=== PATIENT | male | born 1950 | race Caucasian/White ===

== ENCOUNTER 2016-11-02 11:37 | Inpatient (IN) | payer MEDICARE, OTHER ==
[~2016-11-02] VITALS: Ht 170.2 cm; Wt 72.1 kg
[~2016-11-02 11:37] MED LIST: AMLO5TAB2 PO; HYDR-4003 PO; TAMS0.4C98 PO
[2016-11-02 11:51] VITALS: BP 144/82; PULSE 112; O2SAT 100
--- NOTE | 2016-11-02 12:17 | ED.REPORT ---
HPI-Back Pain 40 and Over Date of Service Nov 02, 2016 ED Provider: Carl Haines DO The patient is a 66 year old male with history of prostate cancer, urinary retention with hydronephrosis and acute renal insufficiency, and borderline hypertension, who presents to the emergency department complaining of lower back pain that began 4-5 days ago. His pain has gradually worsened since onset. His pain is not relieved in any position. He denies any known injuries or trauma. He has not had similar symptoms in the past. He denies numbness, weakness, trouble walking, dysuria, flank pain or bowel incontinence. He states he has experienced bladder incontinence for some time due to a previous catheter injury. He was seen by his regular doctor a few days ago who prescribed him Ambien to help with his sleep. He has been unable to get this prescription filled. Over the last several weeks he has also noticed generalized weakness, decreased appetite, and weight loss. The patient does not want to do the therapies that have been recommended to him by Dr. Lopez. He states he would like a more natural route. He is upset and resistant to conventional treatment for prostate cancer. Nursing Notes Stated Complaint: LOWER BACK PAIN Chief Complaint: Back Pain or Injury Nursing Notes Reviewed: Yes Allergies: Coded Allergies: No Known Allergies (Unverified , 05/29/16) Pt reports he does not have an allergy to seafood Scheduled Amlodipine (Amlodipine) 5 Mg Tablet 2.5 MG PO DAILY Tamsulosin (Flomax) 0.4 Mg Capsule 0.4 MG PO BID Scheduled PRN Hydrocodone-Acetaminophen 5-325 mg (Hydrocodone-Acetaminophen 5-325 mg) 1 Each Tablet 1-2 TABLET PO Q4H PRN PRN For Moderate Pain General Time Seen by MD: 12:12 Chief Complaint Lumbar pain Hx Obtained From: Patient Arrived By: Walk-in Sudden in Onset?: Yes Onset Occurred: 4 days ago Symptom Duration: Since onset Location: : Perispinal lumbar Quality: Painful Radiation: : Does not radiate Severity: Current: Moderate Severity: Maximum: Severe Recent Healthcare: No recent hospitalization, Recent doctor visit Similar Sx Previous: No Past Medical History Past Medical History Prostate CA (diagnoses sounds suspected, but not confirmed) Urinary retention, with hydronephrosis and acute renal insufficiency Borderline Hypertension Past Surgical History Inguinal hernia as a child Tonsillectomy Family History Noncontributory Smoking History Current Every Day Smoker Social History Alcohol Use: "Social" Other Social History: Local resident Ambulatory Status Independent Review of Systems Review of Systems Note: +decreased appetite Constitutional: Reports: Recent wt loss, Weakness - generalized Male: Reports Incontinence (not new), Denies Dysuria, Denies Flank pain Musculoskeletal: Reports: Back pain, Denies: Extremity pain Neurologic: Reports: Bladder dysfunction (not new), Denies: Bowel dysfunction, Focal weakness, Numbness, Problem walking Complete sys rev & neg: except as marked. Physical Exam Initial Vital Signs Vital Signs (First) Date Time Temp Pulse Resp B/P Pulse Ox O2 Delivery O2 Flow Rate FiO2 11/02/16 11:51 36.6 112 144/82 100 Room Air Initial VS: Reviewed Head / Eyes: Atraumatic, Normocephalic, PERRL ENT: Mucous membranes moist, Conjunctiva normal, No scleral icterus Neck: Supple, Non-tender, Full range of motion Lymphatic: No lymphadenopathy Extremities: Vascular intact, Neuro intact, No swelling, No tenderness Skin: Warm, Dry, No cyanosis General/Constitutional: Awake, Alert, No acute distress, Cooperative Respiratory / Chest: Atraumatic, Breath sounds NL, Breath sounds = bilat, No respiratory distress, No rales, No rhonchi, No wheezing Cardiovascular: Heart rate NL, Regular rhythm, Heart sounds NL, No gallop, No murmurs, No rubs, Peripheral circulation NL Abdomen: Atraumatic, Non-tender, No guarding, No rebound, BS normoactive, No distention, No palpable mass, No pulsatile mass Suprapubic fullness, abdomen is otherwise soft. Back: Full range of motion, No muscle spasm, Straight leg raise neg, No CVA tenderness Sacral tenderness. Intact motor and sensory. Neurologic: Oriented X3, Speech NL, No motor deficits, No sensory deficits, CN II - XII intact, Cerebellar NL, Memory NL, Gait NL Abnormal Mood/Affect: Positive: Flat affect Interpretation & Diagnostics Lab Results Interpretation Result Diagram: 11/02/16 1250 11/02/16 1250 Test 11/02/16 12:50 White Blood Count 18.2th/mm3 (3.8-10.1) Red Blood Count 3.80mil/mm3 (4.40-5.80) Hemoglobin 11.5g/dL (13.8-17.2) Hematocrit 34.5% (41.0-50.0) Mean Corpuscular Volume 90.8fL (81-100) Mean Corpuscular Hemoglobin 30.3pg (27.0-35.0) Mean Corpuscular Hemoglobin Concent 33.3% (32.0-37.0) Red Cell Distribution Width 13.3% (12.3-15.4) Platelet Count 320bil/L (150-400) Neutrophils (%) (Auto) 90.2% (40-74) Lymphocytes (%) (Auto) 3.6% (14-46) Monocytes (%) (Auto) 5.1% (4-12) Eosinophils (%) (Auto) 0.7% (0-5) Basophils (%) (Auto) 0.1% (0-3) Sodium Level 134mEq/L (134-144) Potassium Level 5.1mEq/L (3.5-5.2) Chloride Level 99mEq/L (97-108) Carbon Dioxide Level 14mmol/L (18-29) Blood Urea Nitrogen 85mg/dL (8-27) Creatinine 3.22mg/dL (0.76-1.27) Estimat Glomerular Filtration Rate 20mL/min (>59) Glucose Level 146mg/dL (60-99) Lactic Acid Level 0.7mmol/L (0.4-2.0) Calcium Level 9.7mg/dL (8.5-10.1) Magnesium Level 2.5mg/dL (1.6-2.6) Total Bilirubin 0.3mg/dL (0.0-1.2) Aspartate Amino Transf (AST/SGOT) 14U/L (0-50) Alanine Aminotransferase (ALT/SGPT) 12U/L (0-44) Alkaline Phosphatase 78U/L (25-160) Total Protein 7.2g/dL (6.4-8.4) Albumin 3.8g/dL (3.4-5.0) Lipase 38U/L (13-60) CT Abd / Pelvis Interpretation IMPRESSION: 1. Findings most consistent with bladder outlet obstruction, with dilated urinary bladder, moderate to severe bilateral hydronephrosis, and ureteral dilatation. 2. New retroperitoneal and iliac chain lymph node enlargement, consistent with metastatic disease given history of prostate carcinoma. 3. New left L5 sclerotic metastasis. Dictated by: Stormy White M.D. on 11/02/2016 at 14:37 Study type: Abdominal CT IV contrast Interpretation / Wet Read by: Interpret - Radiologist Re-Eval/Medical Decision Med Decision/Clinical Course Suspect bladder outlet obstruction due to prostate issues with possible superimposed urinary tract infection causing acute kidney injury. Incidentally patient also has a new metastatic lesion in L5 area which corresponds with his area back pain. Given the severity of his kidney function, will plan to admit. Source of Hx: Old records Re-Evaluation/Progress #1: Time of Eval: 12:45 Re-Evaluation/Progress Note: The patient is refusing a catheter at this time. Re-Evaluation/Progress #2: Time of Eval: 12:55 Re-Evaluation/Progress Note: Discussed the importance of having the catheter placed with the patient. He agrees with the plan. Re-Evaluation/Progress #3: Time of Eval: 14:50 Re-Evaluation/Progress Note: Discussed lab results and plan for admission. The patient is agreeable with plan. Consultation : Referral / Consult Name: Christian Beckman MD Consulted With: Hospitalist Requested Call at: 13:58 Call Returned at: 14:49 Resistor Coater: Will see patient, Agrees with eval, Agrees with plan, Accepts admit Counseled Regarding: Diagnosis, Lab results, Need for admission Discharge & Departure Impression: Primary Impression: Acute kidney injury Additional Impression: Low back pain Chronicity: acute Back pain laterality: midline Sciatica presence: without sciatica Qualified Code: M54.5 - Low back pain Disposition: ADMITTED TO HOSPITAL Discharge Condition All VS Reviewed: Yes Condition: Stable Referrals: Owen Lopez MD (PCP) [facility] Puneet Attestation Portions of this note were transcribed by Kitty Schreiber. I, Dr. Haines personally performed the history, physical exam and medical decision-making; I reviewed and confirmed the accuracy of the information in the transcribed note. Signed by: Puneet Sarah, 11/02/2016 and 1500. copies to: Owen Lopez MD; [facility] Carl Haines DO Nov 02, 2016 12:17 Kitty Schreiber Nov 02, 2016 12:22
[2016-11-02] MEDS ORDERED: 0.9% Sodium Chloride 1,000 ML IV ONE (12:30)
[2016-11-02] MEDS ORDERED: Ondansetron 2 mg/mL 2 mL Inj IVPUSH ONE (12:30)
[2016-11-02] MEDS ORDERED: Lidocaine 2% 5 mL Topical Jelly ONE (13:19)
[2016-11-02 13:27] LABS: BASOPHILS % (AUTO) 0.1 % (0-3); EOSINOPHILS % (AUTO) 0.7 % (0-5); MONOCYTES % (AUTO) 5.1 % (4-12); Mean Corpuscular Hemoglobin 30.3 pg (27.0-35.0); Mean Corpuscular Volume 90.8 fL (81-100); NEUTROPHILS % (AUTO) 90.2 % (40-74); Platelet Count 320 bil/L (150-400)
[2016-11-02 13:33] LABS: Magnesium 2.5 mg/dL (1.6-2.6)
--- NOTE | 2016-11-02 14:46 | DRSVH ---
PROCEDURE: CT ABDOMEN AND PELVIS WITHOUT CONTRAST ([id number]) INDICATIONS: BACK PAIN, HISTORY OF PROSTATE CA TECHNIQUE: After the administration of oral contrast, 5 mm thick sections acquired from the diaphragms to the sy mphysis. 5 mm coronal and sagittal reformats were performed. For radiation dose reduction, the foll owing was used: automated exposure control, adjustment of mA and/or kV according to patient size. COMPARISON: [facility], CT, CT ABD PELVIS W CON, 05/28/2016, 0:23. FINDINGS: Image quality: Excellent. ABDOMEN: Lung bases: Lung bases are clear. Heart size is normal. Solid organs: Liver and spleen are normal in size. Gallbladder is within normal limits. Pancreas i s normal in size. No adrenal nodules. Moderate perinephric fat stranding bilaterally. Moderate to se desmond bilateral hydronephrosis. Moderate bilateral ureteral dilatation. Peritoneum and bowel: Bowel loops demonstrate normal wall thickness and caliber. No free fluid or a ir. Nodes and vessels: New mildly prominent retroperitoneal lymph nodes are present, largest of which is in the aortocaval location measuring 13 mm short axis. Smaller scattered bilateral retroperitoneal an d iliac chain lymph nodes are present, which are increased.. Aorta and inferior vena cava are normal in size. Miscellaneous: No ventral hernias. PELVIS: Genitourinary: Moderate urinary bladder distention. Miscellaneous: No inguinal hernias or adenopathy. Bones: New 20 mm diameter sclerotic focus within the left posterior L5 vertebral body. No vertebral b oj compression fractures. IMPRESSION: 1. Findings most consistent with bladder outlet obstruction, with dilated urinary bladder, moderate t o severe bilateral hydronephrosis, and ureteral dilatation. 2. New retroperitoneal and iliac chain lymph node enlargement, consistent with metastatic disease giv en history of prostate carcinoma. 3. New left L5 sclerotic metastasis. Dictated by: Stormy White M.D. on 11/02/2016 at 14:37 Approved by: Stormy White M.D. on 11/02/2016 at 14:40
[2016-11-02] MEDS ORDERED: cefTRIAXone Inj 2,000 MG in Dextrose 5% Minibag Plus 50 ML IV ONE (14:55)
[2016-11-02] MEDS ORDERED: Alum-Mag Hydrox-Simeth 30 mL Suspension PO PRN (15:00)
[2016-11-02] MEDS: 0.9% Sodium Chloride 1,000 ML IV SCH ×4 (15:34→23:45)
[2016-11-02 15:46] LABS: APPEARANCE,URINE HAZY (CLEAR,HAZY); COLOR,URINE YELLOW (YELLOW); PH,URINE 5.5 (5.0-8.0)
[2016-11-02 15:47] LABS: OCCULT BLOOD,URINE NEGATIVE (NEGATIVE); UROBILINOGEN,URINE NORMAL (NORMAL)
[2016-11-02] MEDS ORDERED: Polyethylene Glycol (PEG) 17 Gm Powder PO PRN (16:40)
[2016-11-02] MEDS ORDERED: Dexamethasone 4 mg/mL Inj IV ONE (16:40)
[2016-11-02] MEDS ORDERED: fentaNYL-PF 50 mCg/mL 2 mL Inj IV PRN (16:40)
[2016-11-02] MEDS ORDERED: _HYDROcodone/APAP 5-325 mg Tablet PO PRN (16:50)
[2016-11-02 16:59] VITALS: BP 168/74; PULSE 101; RESP 16; O2SAT 100
--- NOTE | 2016-11-02 17:09 | PCM.HPMED ---
Subjective Date of Service Nov 02, 2016 Primary Provider: Admitting Physician: Christian Beckman MD Primary Care Physician: Noppedro luis Attending Physician: Christian Beckman MD Admit Status: From the Emergency Department Chief Complaint: Pain in my butt. History of Present Illness: 6 days of progressive low back pain/weakness concurrent with increasing urinary obstruction symptoms. He is known to have prostate cancer and on CT scan imaging is found to have a L5 metastatic lesion that is apparently new. He has been resistant to treatment of prostate cancer for several years, apparently going back to 2010, and has seen urology both locally with Dr. Lopez and with the [facility] clinic in [place]. On his last admission in May he had similar bilateral hydronephrosis and obstruction symptoms. He was apparently self catheterizing until the end of September when he experienced gross hematuria after he says he accidentally used a larger than normal catheter. He has not been catheterizing himself since and now appears to have 875 mL postvoid. This whole process has left him sleepless, weakend, in increasing pain. His last contact with [facility] last week was apparently to ask for a sleeping pill. His creatinine has risen from a baseline of 1.2 up to 3.2 with a BUN of 85. His white blood count again is high at 18,000. On his last admission and this was felt to be caused by the demargination but again pyelonephritis/UTI is once again suspected. There has been no fevers or abdominal pain. Review of Systems: Positive for low back/buttock area pain, weakness, sleeplessness, overflow incontinence. Negative for fevers, chills, sweats, abdominal pain, chest pain, coughing, rashes, seizures, joint pain, bleeding, headaches, new allergies. Allergies Coded Allergies: No Known Allergies (Unverified , 05/29/16) Pt reports he does not have an allergy to seafood Home Medications When necessary ibuprofen/naproxen PMH Prostate cancer Urinary obstruction Hydronephrosis bilateral Surgical History Internal hernia repair at age 1 Tonsillectomy Family History Reviewed and no pertinent history obtained to this admission Social History Hx Alcohol Use: No (he says he does not drink alcohol) Hx Substance Use: No (he says he does not smoke marijuana) Hx Tobacco Use: No Smoking Status: Former Smoker (he says he stopped smoking last month.) Living Arrangement: Alone Additional Information Social History Primary care physician is Dr. Coyle at the [facility] in [place] Urologist is Dr. Lopez He wishes to be full code Exam Vital Signs Vital Sign - Last Date Time Temp Pulse Resp B/P Pulse Ox O2 Delivery O2 Flow Rate FiO2 11/02/16 15:35 36.5 11/02/16 11:51 112 144/82 100 Room Air Exam Alert and oriented 3, with mild pain distress. Pupils are equally round and reactive to light and accommodation, extraocular muscles are intact, sclerae are pink and nonicteric. Throat looks normal No carotid bruits are heard JVD is less than 6 cm No lymph nodes are felt head, neck, supraclavicular area. Heart is regular rate and rhythm without murmur Lungs are clear to auscultation bilaterally Abdomen is soft, bowel sounds are heard, nontender, no organomegaly or masses felt. There is no ankle edema There is no spinal tenderness or tenderness elsewhere in the back. Skin has no jaundice or rash Neuro exam without tremor, but with weakness diffusely and without cranial nerve abnormality detected. Lab and Diagnostics Result Diagram: 11/02/16 1250 11/02/16 1250 X-Rays, CTs and MRIs CT ABDOMEN AND PELVIS WITHOUT CONTRAST ([id number]) INDICATIONS: BACK PAIN, HISTORY OF PROSTATE CA TECHNIQUE: After the administration of oral contrast, 5 mm thick sections acquired from the diaphragms to the symphysis. 5 mm coronal and sagittal reformats were performed. For radiation dose reduction, the following was used: automated exposure control, adjustment of mA and/or kV according to patient size. COMPARISON: [facility], CT, CT ABD PELVIS W CON, 05/28/2016, 0:23. FINDINGS: Image quality: Excellent. ABDOMEN: Lung bases: Lung bases are clear. Heart size is normal. Solid organs: Liver and spleen are normal in size. Gallbladder is within normal limits. Pancreas is normal in size. No adrenal nodules. Moderate perinephric fat stranding bilaterally. Moderate to severe bilateral hydronephrosis. Moderate bilateral ureteral dilatation. Peritoneum and bowel: Bowel loops demonstrate normal wall thickness and caliber. No free fluid or air. Nodes and vessels: New mildly prominent retroperitoneal lymph nodes are present , largest of which is in the aortocaval location measuring 13 mm short axis. Smaller scattered bilateral retroperitoneal and iliac chain lymph nodes are present, which are increased.. Aorta and inferior vena cava are normal in size. Miscellaneous: No ventral hernias. PELVIS: Genitourinary: Moderate urinary bladder distention. Miscellaneous: No inguinal hernias or adenopathy. Bones: New 20 mm diameter sclerotic focus within the left posterior L5 vertebral body. No vertebral body compression fractures. IMPRESSION: 1. Findings most consistent with bladder outlet obstruction, with dilated urinary bladder, moderate to severe bilateral hydronephrosis, and ureteral dilatation. 2. New retroperitoneal and iliac chain lymph node enlargement, consistent with metastatic disease given history of prostate carcinoma. 3. New left L5 sclerotic metastasis. Dictated by: Stormy White M.D Assessment & Plan 1 - Bony metastasis of prostate cancer -Begin dexamethasone IV -Recommend palliative care consultation for goals of care and symptom control 2 - Bladder Outlet Obstruction/Hydronephrosis -Consider urology consultation -Continue Palencia catheter 3 - Out of Control Pain/Insomnia -Begin on dexamethasone/ibuprofen -Use IV fentanyl when necessary -Use hydrocodone orally when necessary 4- Probable Depression -Recommend treatment in further discussions with the patient 5 - Acute Renal Failure -Anticipate improvement with relief of outlet obstruction using catheter -Repeat BMP tomorrow 6 - Leukocytosis/Possible UTI - Begin Rocephin IV - UC pending. - Follow WBC Austen Beckman MD Pain Evaluation: Pain not Controlled VTE Prophylaxis: Sub-Q Enoxaparin VTE Mechanical Devices: Anti-Embolic stockings Resuscitation Status: CPR: Attempt Resuscitation Christian Beckman MD Nov 02, 2016 16:54
[2016-11-02] MEDS: HYDROcodone-APAP 5-325 mg Tablet PO PRN ×2 (17:14→18:56)
--- NOTE | 2016-11-02 19:13 | NUR ---
Admit Pt arrive on [facility] at 1720, able to roll from gurney to bed with no assistance. Pain 8/10 on admit administered Vicodin. Palencia draining clear light yellow urine. admit and med rec done.
[2016-11-02 20:45] VITALS: BP 148/81; PULSE 94; RESP 18; O2SAT 97
[2016-11-03 01:40] VITALS: BP 136/71; PULSE 83; RESP 20; O2SAT 99
[2016-11-03] MEDS: 0.9% Sodium Chloride 1,000 ML IV SCH ×5 (02:21→22:40)
[2016-11-03 05:11] LABS: BASOPHILS % (AUTO) 0.1 % (0-3); EOSINOPHILS % (AUTO) 0 % (0-5); MONOCYTES % (AUTO) 2.7 % (4-12); Mean Corpuscular Hemoglobin 30.5 pg (27.0-35.0); Mean Corpuscular Volume 91.4 fL (81-100); NEUTROPHILS % (AUTO) 94.2 % (40-74); Platelet Count 336 bil/L (150-400)
[2016-11-03 06:19] VITALS: BP 139/71; PULSE 81; RESP 16; O2SAT 99
--- NOTE | 2016-11-03 07:21 | NUR ---
Adequate UOP. FC = 1950 cc. Back pain subsided with meds. No overt complications noted.
[2016-11-03] MEDS ORDERED: cefTRIAXone Inj 1,000 MG in Dextrose 5% Minibag Plus 50 ML IV SCH (08:30)
[2016-11-03] MEDS: HYDROcodone-APAP 5-325 mg Tablet PO PRN ×4 (09:10→22:37)
[2016-11-03] MEDS: Dexamethasone 4 mg/mL Inj IV SCH ×2 (10:43→20:53)
--- NOTE | 2016-11-03 11:34 | PCM.PNMED ---
Subjective Date of Service Nov 03, 2016 Subjective Feeling better due to Decadron and Ibuprofen. The pain is in a big holy cross around the rectum. He is worried that he could have pancreatic cancer, which he has heard would affect his prognosis. I reassured him that the Pancreas was normal on CT. He feels that the AMA is suppressing all the new cancer treatment technology that doesn't involve chemo and radiation. He wants to cure his prostate cancer with healthy food and probiotics, quickly forgetting how ineffective that has been up till now. He refuses to speak to a urologist, continuing to blame that office for giving him a larger caliber in and out catheter he was given to use, that he blames for an episode of gross hematuria weeks ago. He doesn't care that the hormonal and other well tolerated prostate cancer treatments that could be given would be very effective for his bone met pain. The UA is normal so he is relieved to hear that the antibiotics will be stopped because he doesn't like them either. The impression I get today is that as soon as his pain/distress is relieved his underlying distrustful/delusional personality traits come to the front. He initially is upset by the idea of palliative care talking to him tomorrow despite me stressing that following his goals and improving symptom control is the only thing that is necessary for now. Exam Vital Signs Vital Sign - Last Date Time Temp Pulse Resp B/P Pulse Ox O2 Delivery O2 Flow Rate FiO2 11/03/16 06:19 37.1 81 16 139/71 99 Room Air Intake and Output 11/02/16 11/02/16 11/03/16 Cumulative From/Thru 15:00 23:00 07:00 11/02/16 11:51 - 11/03/16 06:19 Intake Total 1400 ml 2147 ml 3547 ml Output Total 850 ml 1950 ml 2800 ml Balance 550 ml 197 ml 747 ml Intake Oral 400 ml 1000 ml 1400 ml IV Total 1000 ml 1147 ml 2147 ml Output Urine Total 850 ml 1950 ml 2800 ml Bladder Scan Volume Amount 875ML # Bowel Movements 0 0 Exam Alert and oriented 3, with no pain behavior or distress.. Heart is regular rate and rhythm without murmur Lungs are clear to auscultation bilaterally There is no ankle edema Skin has no jaundice or rash Neuro exam without tremor, but with weakness diffusely and without cranial nerve abnormality detected. IVs and Medications Medications Reviewed: Medications were reviewed in detail Lab and Diagnostics Result Diagram: 11/03/1645611/03/16456 X-Rays, CTs and MRIs CT ABDOMEN AND PELVIS WITHOUT CONTRAST ([id number]) INDICATIONS: BACK PAIN, HISTORY OF PROSTATE CA TECHNIQUE: After the administration of oral contrast, 5 mm thick sections acquired from the diaphragms to the symphysis. 5 mm coronal and sagittal reformats were performed. For radiation dose reduction, the following was used: automated exposure control, adjustment of mA and/or kV according to patient size. COMPARISON: [facility], CT, CT ABD PELVIS W CON, 05/28/2016, 0:23. FINDINGS: Image quality: Excellent. ABDOMEN: Lung bases: Lung bases are clear. Heart size is normal. Solid organs: Liver and spleen are normal in size. Gallbladder is within normal limits. Pancreas is normal in size. No adrenal nodules. Moderate perinephric fat stranding bilaterally. Moderate to severe bilateral hydronephrosis. Moderate bilateral ureteral dilatation. Peritoneum and bowel: Bowel loops demonstrate normal wall thickness and caliber. No free fluid or air. Nodes and vessels: New mildly prominent retroperitoneal lymph nodes are present , largest of which is in the aortocaval location measuring 13 mm short axis. Smaller scattered bilateral retroperitoneal and iliac chain lymph nodes are present, which are increased.. Aorta and inferior vena cava are normal in size. Miscellaneous: No ventral hernias. PELVIS: Genitourinary: Moderate urinary bladder distention. Miscellaneous: No inguinal hernias or adenopathy. Bones: New 20 mm diameter sclerotic focus within the left posterior L5 vertebral body. No vertebral body compression fractures. IMPRESSION: 1. Findings most consistent with bladder outlet obstruction, with dilated urinary bladder, moderate to severe bilateral hydronephrosis, and ureteral dilatation. 2. New retroperitoneal and iliac chain lymph node enlargement, consistent with metastatic disease given history of prostate carcinoma. 3. New left L5 sclerotic metastasis. Dictated by: Stormy White M.D Assessment & Plan 1 - Bony metastasis of prostate cancer -Continue dexamethasone IV -Recommend palliative care consultation for goals of care and symptom control -He is focusing on his apparent delusional / paranoid beliefs today. He can sound quite reasonable, especially when in pain, but when the pain is controlled he reverts back to his negative opinions of urology, chemotherapy, pain medicines, hospice. -He is reluctant to speak with palliative care because he doesn't consider himself ready for hospice. Unfortunately he is incorrect. This untreated prostate cancer will again be symptomatic despite the lull in pain from the Ibuprofen and Decadron today. -The location of the pain is actually below the level of the L5 Metastasis so the local tumor growth and the probable nerve plexus involvement is likely to blame. 2 - Bladder Outlet Obstruction/Hydronephrosis -He refuses urology consultation, so will need to be discharged with a catheter. -Continue Palencia catheter 3 - Out of Control Pain/Insomnia -Responded to dexamethasone/ibuprofen -Use IV fentanyl when necessary -Use hydrocodone orally when necessary -Refuses to consider Urology prostate cancer treatments for the pain. 4- Probable Depression -Recommend treatment in further discussions with the patient -He is suspicious and probably paranoid about many medicines. 5 - Acute Renal Failure -improved as anticipated with relief of outlet obstruction using catheter -Repeat BMP tomorrow -Will need the catheter left in at discharge. 6 - Leukocytosis - Resolving -Stop Rocephin as the UA is normal -Repeat WBC tomorrow. Austen Beckman MD VTE Prophylaxis: Sub-Q Enoxaparin VTE Mechanical Devices: Intermittant Pneumatic CD Resuscitation Status: CPR: Attempt Resuscitation Christian Beckman MD Nov 03, 2016 11:33
--- NOTE | 2016-11-03 13:47 | NUR ---
Social Work- Initial Assessment Data: Pt is a 66 year old male admitted 11/02/16 for DOROTHY, Post Obs Renal Failure per H&P. Pt's [place] is [place] and [place]. Pt's PCP is [facility] Salguero at the [facility]. SW met with patient at bedside regarding discharge plan, SW role explained. Pt alert and oriented x3. Pt resides alone in [place] in an apartment where he remains independent with ADLs. Pt uses a cane at baseline and continues to drive. Pt has no HH or SNF history. Pt has no LTC insurance. SW spoke with pt regarding DPOA, encouraged pt to complete paperwork and bring into the hospital. Pt has questions regarding billing, SW to follow up regarding pt's concerns. Pt to discharge home via POV. No anticipated discharge concerns. SW will continue to follow. 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 Plan: SW to follow up with billing department to direct pt's billing questions. Pt to discharge home via POV. No anticipated discharge needs. SW will continue to follow. PERRI Hawley Addendum: 11/03/16 at 1354 by ROSALES TYLER SS Amended: Links added.
[2016-11-03 13:54] VITALS: BP 171/75; PULSE 94; RESP 18; O2SAT 99
--- NOTE | 2016-11-03 16:10 | NUR ---
Pain/Ambulation/Compliance Patient rates pain throughout shift at 5-7/10. Given x2 [place] for pain which at this time, patient verbalizes is allowing him to rest comfortably and sleep. Seen by PT this shift. Did well. Needs to be up with SBA, may use cane for support. Encouraged patient to be up in chair TID and meals, and also ambulate in the hallway with staff. Patient declines to ambulate at this time. Elevated BP upon 2pm vitals. Per record this am, patient refused amlodipine for BP control, stating "my blood pressure is fine, I don't need to take get started taking that again." Med Rec indicates patient was at one time taking this med, but noncompliant with continuing. Offered patient additional unschedule dose this afternoon, but he refuses the BP med. Will check BP again at 1630. Patient states he is "just riled up" but does not present to be in any distress. He also verbalizes some odd ideas about "oxygen and steroids curing my cancer, and cutting out sugar to kill my cancer." Attempted patient education with little success.
[2016-11-03 17:23] VITALS: BP 166/81
[2016-11-03 19:27] VITALS: BP 147/71; PULSE 91; RESP 20; O2SAT 100
[2016-11-03] MEDS: Ondansetron 2 mg/mL 2 mL Inj IVPUSH PRN (22:48)
--- NOTE | 2016-11-04 03:16 | NUR ---
Pain/ nausea Pt had questions concerning Dexamethasone, printed care notes and explained the purpose of the med. Pt reporting pain at bedtime at 4/10 to back and took 2 tab of Vicodin. Pt also reported some nausea and took Zofran 4mg IV with relief. Pt now sleeping and appears comfortable.
[2016-11-04] MEDS: Ondansetron 2 mg/mL 2 mL Inj IVPUSH PRN (04:38)
[2016-11-04] MEDS: HYDROcodone-APAP 5-325 mg Tablet PO PRN ×2 (05:21→09:26)
--- NOTE | 2016-11-04 05:48 | PCM.PNMED ---
Subjective Date of Service Nov 04, 2016 Subjective Patient says he is feeling pretty good, able to sit up by himself. He blames an oversized catheter that he was given for self-cath for hematuria he experienced few months ago, does not appear to accept he has prostate cancer with L5 metastatic disease and he needs treatments. He talk about alternative therapy with oils. He says he did feel very weak prior to coming to the ED. Palliative care is consulted and is in to see the patient this AM. He denies overnight fevers and chills Exam Vital Signs Vital Sign - Last Date Time Temp Pulse Resp B/P Pulse Ox O2 Delivery O2 Flow Rate FiO2 11/03/16 19:27 36.4 91 20 147/71 100 Room Air Intake and Output 11/03/16 11/03/16 11/04/16 Cumulative From/Thru 15:00 23:00 07:00 11/02/16 11:51 - 11/04/16 04:39 Intake Total 3286 ml 950 ml 7783 ml Output Total 1450 ml 4250 ml Balance 1836 ml 950 ml 3533 ml Intake Oral 1900 ml 3300 ml IV Total 1386 ml 950 ml 4483 ml Output Urine Total 1450 ml 4250 ml # Bowel Movements 0 0 Exam General: Appears in no acute distress Eyes: [place] conjunctivae. No ptosis Neck: trachea midline, no thyromegaly Lungs: CTA with normal respiratory effort CV: RRR, no murmurs/rubs/gallops GI: Soft, non-tender with no hepatosplenomegaly MSK: Able to sit up on bed, 4+/5 in leg strength Skin: Warm and dry. Psych: A&O X3, affect is pleasant Neuro: No focal deficits Lab and Diagnostics Result Diagram: 11/03/167 11/03/16 0457 X-Rays, CTs and MRIs CT ABDOMEN AND PELVIS WITHOUT CONTRAST ([id number]) INDICATIONS: BACK PAIN, HISTORY OF PROSTATE CA TECHNIQUE: After the administration of oral contrast, 5 mm thick sections acquired from the diaphragms to the symphysis. 5 mm coronal and sagittal reformats were performed. For radiation dose reduction, the following was used: automated exposure control, adjustment of mA and/or kV according to patient size. COMPARISON: [facility], CT, CT ABD PELVIS W CON, 05/28/2016, 0:23. FINDINGS: Image quality: Excellent. ABDOMEN: Lung bases: Lung bases are clear. Heart size is normal. Solid organs: Liver and spleen are normal in size. Gallbladder is within normal limits. Pancreas is normal in size. No adrenal nodules. Moderate perinephric fat stranding bilaterally. Moderate to severe bilateral hydronephrosis. Moderate bilateral ureteral dilatation. Peritoneum and bowel: Bowel loops demonstrate normal wall thickness and caliber. No free fluid or air. Nodes and vessels: New mildly prominent retroperitoneal lymph nodes are present , largest of which is in the aortocaval location measuring 13 mm short axis. Smaller scattered bilateral retroperitoneal and iliac chain lymph nodes are present, which are increased.. Aorta and inferior vena cava are normal in size. Miscellaneous: No ventral hernias. PELVIS: Genitourinary: Moderate urinary bladder distention. Miscellaneous: No inguinal hernias or adenopathy. Bones: New 20 mm diameter sclerotic focus within the left posterior L5 vertebral body. No vertebral body compression fractures. IMPRESSION: 1. Findings most consistent with bladder outlet obstruction, with dilated urinary bladder, moderate to severe bilateral hydronephrosis, and ureteral dilatation. 2. New retroperitoneal and iliac chain lymph node enlargement, consistent with metastatic disease given history of prostate carcinoma. 3. New left L5 sclerotic metastasis. Dictated by: Stormy White M.D Assessment & Plan 1 - Bony metastasis of prostate cancer -Continue dexamethasone IV -Recommend palliative care consultation for goals of care and symptom control -He is focusing on his apparent delusional / paranoid beliefs today. He can sound quite reasonable, especially when in pain, but when the pain is controlled he reverts back to his negative opinions of urology, chemotherapy, pain medicines, hospice. -He is reluctant to speak with palliative care because he doesn't consider himself ready for hospice. Unfortunately he is incorrect. This untreated prostate cancer will again be symptomatic despite the lull in pain from the Ibuprofen and Decadron today: He did meet with Dr. Holland and they had a somewhat fruitful conversation. He agrees to get home care help, pain control but does not want PO dexamethasone. The best thing we may be able to do for him is to arrange for PT/OT at home and offer him pain control. -The location of the pain is actually below the level of the L5 Metastasis so the local tumor growth and the probable nerve plexus involvement is likely to blame. 2 - Bladder Outlet Obstruction/Hydronephrosis -He refuses urology consultation, so will need to be discharged with a catheter. -Continue Palencia catheter 3 - Out of Control Pain/Insomnia -Responded to dexamethasone/ibuprofen -Use IV fentanyl when necessary -Use hydrocodone orally when necessary -Refuses to consider Urology prostate cancer treatments for the pain. 4- Probable Depression -Recommend treatment in further discussions with the patient -He is suspicious and probably paranoid about many medicines. 5 - Acute Renal Failure -improved as anticipated with relief of outlet obstruction using catheter -Repeat BMP tomorrow -Will need the catheter left in at discharge. 6 - Leukocytosis - Resolving -Stop Rocephin as the UA is normal -Repeat WBC tomorrow. Yarelis Mary DO Pain Evaluation: Adequate Pain Control VTE Prophylaxis: Sub-Q Enoxaparin VTE Mechanical Devices: Intermittant Pneumatic CD Resuscitation Status: CPR: Attempt Resuscitation Yarelis Mary DO Nov 04, 2016 05:48
[2016-11-04 06:11] VITALS: BP 147/80; PULSE 90; RESP 20; O2SAT 98
[2016-11-04 06:34] LABS: Mean Corpuscular Hemoglobin 30.6 pg (27.0-35.0); Mean Corpuscular Volume 91.2 fL (81-100)
[2016-11-04] MEDS: Dexamethasone 4 mg/mL Inj IV SCH ×2 (08:30→19:54)
--- NOTE | 2016-11-04 08:41 | NUR ---
Palliative Care Palliative Care received order from Dr Vadim Beckman 11/03/16 to assist with goals of care and symptom management. Patient is a 66 year old man with metastatic prostate cancer. Patient resides in an apartment alone. Vivi Khan (sister) [phone] Palliative Care to follow. Tracie Grijalva
[2016-11-04] MEDS: 0.9% Sodium Chloride 1,000 ML IV SCH ×2 (09:06→19:50)
--- NOTE | 2016-11-04 10:30 | NUR ---
Morning medications Pt very hesitant about taking prescribed medications. Pt eventually agreed to take Flomax and Amlodipine. Pt given care notes on other medications. Pt said he would review the medication information and consider taking them later.
[2016-11-04] MEDS ORDERED: MetoCLOpramide 5 mg/mL 2 mL Inj IVPUSH PRN (11:35)
--- NOTE | 2016-11-04 12:02 | PCM.CONPAL ---
Date of Service Nov 04, 2016 Date of Hospital Admission: Nov 02, 2016 at 16:05 Date of Palliative Consult: Nov 04, 2016 Requesting Provider: Christian Beckman MD Reason Palliative Care Consult: Pain, Advance Care Planning, Goals of Care Discussion Hospital Unit @time of consult: Orthopedic/Surgical Care Palliative Care Recommendation 66-year-old gentleman with known prostate cancer, not compliant with standard care, who presented with increasing back pain and finding of new L5 metastatic lesion as well as new lymphadenopathy. Continues to be committed to pursuing only alternative therapies. Palliative medicine consulted to assist with symptom management, advanced directive planning, as well as discussion of goals of care. Summary of palliative recommendations: -Symptom management (Pain/other)- talked with him about options for pain management. He has been having some nausea with Vicodin and incomplete pain relief. Will discontinue Vicodin and try oxycodone 5-10 mg Q 4 hr prn. He has been very reluctant to try IV pain medicines. He does not feel Zofran is helping his nausea and may have caused him to hallucinate briefly last night- will therefore try Reglan prn. He specifically requests Ambien, 5 mg to help him sleep and has used this before - ordered. Discussed ongoing use of dexamethasone and offered to switch to 4 mg PO QAM in preparation for discharge, but he is wary of this medicine and wants to read more about it before making any changes or agreeing to continue it. He requested a heating pad for his back and I ordered that. Note that any discussions about medications require careful discussion of potential risks and benefits, incorporating his fears and anxieties regarding how the medications will interact with his cancer therapy diet (the Budwig diet) . I did review the above medication changes with his primary hospitalist, Dr. Mary, as well. He will need to be discharged with Palencia catheter in place to prevent recurrent bladder outlet obstruction and resultant acute renal failure. -DPOA/Advanced Directives/POLST- has never completed such documentation and was not willing to do so today. Did mention that years ago his father made him his POA which caused all sorts of strife in the family, and so he said his sisters involvement is problematic. -Family/emotional support- he tells me mixed things about how his sisters will react or support him, but did note that they have offered to take him in at their homes in [place] and he is considering moving there. After my interview with him, I spoke with mattress spring encaser and passed along the patient requests for consideration of home health nursing, home health physical therapy, assistance with getting DME for home as well as referral to the resident clinic for follow-up care. Additional Medical Diagnoses with primary management by Hospitalist team include : 1 - Bony metastasis of prostate cancer 2 - Bladder Outlet Obstruction/Hydronephrosis 3 - Out of Control Pain/Insomnia 4- Probable Depression 5 - Acute Renal Failure 6 - Leukocytosis Problems: End of Life Preferences At this time he remains full code but is uninterested in standard medical evaluation/intervention for his progressive cancer Goals of Care He says that he wants to live and he says that he wants to use his Budwig diet to help cure him Disposition Probably home with home health support Resuscitation Status Resuscitation Status: CPR: Attempt Resuscitation POLST Updates/Changes Previous POLST?: No . Advanced Care Planning Address: POLST, Durable Power of Tan Room Supervisor Pain: Mild Symptom management: Nausea, Pain Pt History History of Present Illness Per admission H&P: 66-year-old male with history of 6 days of progressive low back pain/weakness concurrent with increasing urinary obstruction symptoms. He is known to have prostate cancer and on CT scan imaging is found to have a L5 metastatic lesion that is apparently new. He has been resistant to treatment of prostate cancer for several years, apparently going back to 2010, and has seen urology both locally with Dr. Lopez and with the [facility] in [place]. On his last admission in May he had similar bilateral hydronephrosis and obstruction symptoms. He was apparently self catheterizing until the end of September when he experienced gross hematuria after he says he accidentally used a larger than normal catheter. He has not been catheterizing himself since and now appears to have 875 mL postvoid. This whole process has left him sleepless, weakend, in increasing pain. His last contact with his [facility] doctor last week was apparently to ask for a sleeping pill. His creatinine has risen from a baseline of 1.2 up to 3.2 with a BUN of 85. His white blood count again is high at 18,000. On his last admission and this was felt to be caused by the demargination but again pyelonephritis/UTI is once again suspected. There has been no fevers or abdominal pain. Since admission, pain control improved but still not optimal. Urinary symptoms resolved with Palencia catheter placement. Renal function back to baseline. Patient is deeply attached to alternative medical approach to his cancer diagnosis, utilizing the Budwig dietary program (which, among other things, involves the use of eating cottage cheese and flaxseed oil as a curative). He refuses urology or oncology consultations were input, is very concerned about all of his medications and the impact they may have on/potential issues with interference with his diet. Cancer was originally diagnosed in 2010 and he [facility]. He went on a broccoli sprout curative diet and says that his PSA initially decreased, but then he had to do a lot of traveling, fell off the diet and that is why his cancer recurred. Palliative medicine was consulted to assist with symptom management, discussion of advanced directive and other related issues, as well as goals of care. Prior to visiting, I reviewed his updated records in the EMR in detail and spoke with his bedside nurse. When I arrived, he was resting comfortably in bed. He is oriented and quite appropriate. He continues to have low back pain but says it is somewhat better. He is willing to go home with Palencia catheter in place. He says unequivocally "I want to live" and expects that adherence to the Budwig diet will control or cure his cancer. He is quite close to any consideration of other possible outcomes. At this time his biggest concern is that he says "I need to get my strength back ". He is interested in receiving home health support, possibly home health physical therapy, and wonders if we could help him obtain DME such as bathroom rails, etc. He initially also requested that he be allowed to come to the hospital every month or two to have blood tests that he wants done drawn without having to see a physician and we talked through this- I basically advised him that that was impossible and that he would have to follow with somebody as outpatient order such testing for him. He is unhappy with his [facility] care because they do not take care of him in an understanding way that is consistent with his alternative approach, but was open to considering seeing a physician at the resident clinic. He says finances are a significant issue and he does not have money to see an expensive doctor. 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 Grew up outside of [place], [place]. 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 Family Members Issues: He has 2 sisters in [place], Tiny Pope and Vivi Khan. He says his sister Tiny is very controlling and that he did not want me contacting her, saying that the last time we talked with her about his health problems "she screamed at me on the phone for 20 minutes". He also did not want me calling his other sister Vivi today. He says both sisters have said he could come to live with them in [place] if need be. He is considering this as an option. Social Support: Very limited locally- he notes no significant close friends or other people who could assist with his care Living Situation: Lives alone in an apartment in [place]. Usually fully independent Palliative Performance Scale PPS Patient Status: Baseline PPS Ambulation: Reduced (uses cane) PPS Activity: Unable to do normal job/work PPS Self-Care: Full Self Care PPS Intake: Normal PPS Conscious Level: Full Performance Scale: 70% ADLs ADL Patient Status: Baseline ADL Ambulation: Reduced ADL Dressing: Full ADL Feeding: Full ADL Hygene/bathing: Full ADL Transfers: Full POLST at Time of Admission Previous POLST?: No Allergy Allergies Reviewed: Yes Medications Current Medications: Current Medications Morphine Sulfate 2 mg 2 mg Q15M PRN IVPUSH Last administered on 11/02/16 15:34 ; Admin Dose 2 MG; Start 11/02/16 at 12:30; Stop 11/03/16 at 12:31; Status DC Sodium Chloride 1,000 ml @ 200 mls/hr Q5H IV Last administered on 11/02/16 15: 34; Admin Dose 200 MLS/HR; Start 11/02/16 at 13:45; Stop 11/03/16 at 16:18; Status DC Al Hydrox/Mg Hydrox/Simethicone 30 ml Q6 PRN PO; Start 11/02/16 at 15:00 Ondansetron HCl Dose range: 4 mg to 8 mg Q4H PRN IVPUSH Last administered on 04:38; Admin Dose 4 MG; Start 11/02/16 at 15:00; Stop 11/04/16 at 11:34; Status DC Acetaminophen 975 mg Q6H PRN PO; Start 11/02/16 at 15:00 Enoxaparin Sodium 40 mg 40 mg DAILY SUBQ Last administered on 11/03/16 10:42; Admin Dose 40 MG; Start 11/03/16 at 08:30 Sodium Chloride 1,000 ml @ 100 mls/hr Q10H IV Last administered on 11/04/16 09: 06; Admin Dose 100 MLS/HR; Start 11/02/16 at 16:40 Senna 17.2 mg BID PRN PO; Start 11/02/16 at 16:40 Polyethylene Glycol 17 gm DAILY PRN PO; Start 11/02/16 at 16:40 Acetaminophen/ Hydrocodone Bitart 1-2 TABS Q4H PRN PO Last administered on 09:26; Admin Dose 1 TABLET; Start 11/02/16 at 16:40; Stop 11/04/16 at 11:34; Status DC Fentanyl Citrate 25-50 mcg Q3H PRN IV; Start 11/02/16 at 16:40 Dexamethasone Sodium Phosphate 2 mg BID IV Last administered on 11/03/16 20:53; Admin Dose 2 MG; Start 11/03/16 at 08:30 Ibuprofen 800 mg TID PRN PO Last administered on 11/03/16 18:06; Admin Dose 800 MG; Start 11/02/16 at 16:50 Amlodipine Besylate 2.5 mg DAILY PO; Start 11/03/16 at 08:30 Acetaminophen/ Hydrocodone Bitart 1-2 tabs Q4H PRN PO; Start 11/02/16 at 16:50; Stop 11/02/16 at 16:51; Status DC Tamsulosin HCl 0.4 mg 0.4 mg BID PO Last administered on 11/03/16 20:52; Admin Dose 0.4 MG; Start 11/02/16 at 20:30 Ceftriaxone Sodium/Dextrose/ Water 50 ml @ 100 mls/hr Q24H IV; Start 11/03/16 at 08:30; Stop 11/03/16 at 08:30; Status DC Oxycodone HCl 5-10 mg PO every 4 hours... Q4H PRN PO; Start 11/04/16 at 11:35 Metoclopramide HCl 5 mg Q6H PRN IVPUSH; Start 11/04/16 at 11:35 Zolpidem Tartrate 5 mg HS PRN PO; Start 11/04/16 at 11:35 Calcium Carbonate 500 mg PRN PRN PO; Start 11/04/16 at 11:40 Scheduled Tamsulosin (Flomax) 0.4 Mg Capsule 0.4 MG PO BID Objective Findings Exam Vital Sign - Last Date Time Temp Pulse Resp B/P Pulse Ox O2 Delivery O2 Flow Rate FiO2 11/04/16 06:11 37.0 90 20 147/80 98 Room Air Intake and Output 11/03/16 11/03/16 11/04/16 Cumulative From/Thru 15:00 23:00 07:00 11/02/16 11:51 - 11/04/16 06:11 Intake Total 3286 ml 1200 ml 8033 ml Output Total 1450 ml 700 ml 4950 ml Balance 1836 ml 500 ml 3083 ml Intake Oral 1900 ml 250 ml 3550 ml IV Total 1386 ml 950 ml 4483 ml Output Urine Total 1450 ml 700 ml 4950 ml # Bowel Movements 0 0 0 Objective Pleasant gentleman lying in bed, white hair and white gary. Oriented and quite appropriate within the setting of his alternative health mindset. Vital signs noted. Skin warm and dry. Head and neck exam without acute focal findings. Lungs clear or throat, heart sounds regular, abdomen is rounded, soft and nontender. Extremities without edema. Neurologic exam nonfocal/not lateralized. Lab/Diagnostics Lab and Imaging results reviewed in detail in EMR. Time spent Total time 95 minutes; >50% face to face with patient, providing counselling regarding plans and recommendations, and in care coordination with his medical teams. Of the above total time, 15 minutes counseling for advanced care planning with the patient Mitchel Holland MD Nov 04, 2016 12:02
[2016-11-04 13:14] VITALS: BP 167/81; PULSE 70; RESP 19; O2SAT 99
--- NOTE | 2016-11-04 13:50 | NUR ---
Social Work: Continued Discharge Planning SW met with patient at bedside to discuss discharge planning after being notified by palliative care physician that patient was interested in receiving home health support, possibly home health physical therapy, and wonders if we could help him obtain DME such as bathroom rails, etc. Patient stated that he does not want home health because his home is to small for physical therapy to complete exercises with him. Patient states that he will contact the [facility] for assistance with bathroom rails. SW also discussed patient being unhappy with his [facility] care because they do not take care and wanting to see a physician at the resident clinic. Patient stated that he wanted to keep his VA physician and see another PCP, but SW notified patient that it was not possible to have two PCP's. Patient states that he will continue to see his VA physician. SW will continue to follow. Patient is likely to discharge home via POV. Plan: Patient will discharge home via POV. SW will continue to follow. Kelli Rod LMSW, SHARON
[2016-11-04 19:51] VITALS: BP 145/74; PULSE 95; RESP 18; O2SAT 95
--- NOTE | 2016-11-05 05:33 | NUR ---
Pain/ outlook Pt reporting pain 5-6/10 to back and is taking 10 mg Oxycodone along with 800 mg PO Motrin. Pt also took Ambien at bedtime and was able to sleep "a full 5 hours." Pt is worried about increased pain and believes due to the location of the tumor on his back that the cancer could "invade his nerve system" Pt is "contemplating his outlook" on his disease and would like to talk to a doctor today about this. K pad to back. No nausea overnight. Palencia patent, draining clear urine.
[2016-11-05 05:48] LABS: Mean Corpuscular Volume 92.5 fL (81-100)
[2016-11-05] MEDS: 0.9% Sodium Chloride 1,000 ML IV SCH (05:55)
[2016-11-05 06:06] VITALS: BP 158/72; PULSE 91; RESP 20; O2SAT 99
[2016-11-05] MEDS: Dexamethasone 4 mg/mL Inj IV SCH (08:30)
--- NOTE | 2016-11-05 11:14 | NUR ---
Social Work- Readiness for Discharge Data: EMR reviewed. Pt is on day 3 of hospitalization for DOROTHY per H&P. Pt is not medically stable, anticipate discharge later today. 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 Pt has declined HH PT and states he will follow up with [facility] regarding DME and assistive devices. Pt to discharge home via POV. No anticipated discharge needs. SW will continue to follow. 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 Plan: Patient will discharge home via POV. No anticipated discharge needs. SW will continue to follow. PERRI Hawley
[2016-11-05] MEDS ORDERED: DEX1 PO (13:58)
[2016-11-05] MEDS ORDERED: ZLP5T PO (13:58)
[2016-11-05] MEDS ORDERED: OXYC5TAB72 PO (13:58)
[2016-11-05] MEDS ORDERED: POLY17PO6 PO (13:58)
[2016-11-05] MEDS ORDERED: AMLO5TAB2 PO (13:58)
--- NOTE | 2016-11-05 13:59 | NUR ---
Social Work- Discharge Data: EMR reviewed. Pt is on day 3 of hospitalization for DOROTHY per H&P. Pt to discharge today. 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 Pt has declined HH PT and states he will follow up with [facility] regarding DME and assistive devices. Pt to discharge home via POV. No discharge needs. 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 Plan: Patient will discharge home via POV. No discharge needs. PERRI Hawley
--- NOTE | 2016-11-05 14:01 | PCM.DC.MED ---
Discharge Summary Date of Service Nov 05, 2016 Dates of Hospitalization Date of Hospital Admission Nov 02, 2016 at 16:05 Date of Discharge: Nov 05, 2016 Providers: Admitting Physician: Christian Beckman MD Primary Care Physician: Nopcp Attending Physician: Christian Beckman MD Diagnosis at Time of Discharge Diagnosis at Time of Discharge Pain due to bony metastases due to prostate cancer, bladder outlet obstruction and hydronephrosis Depression Acute renal failure due to postobstructive etiology Tachycardia Hyperkalemia Consultations Urology, palliative care, PT/OT Procedures XRay, CTs & MRIs CT ABDOMEN AND PELVIS WITHOUT CONTRAST ([id number]) INDICATIONS: BACK PAIN, HISTORY OF PROSTATE CA TECHNIQUE: After the administration of oral contrast, 5 mm thick sections acquired from the diaphragms to the symphysis. 5 mm coronal and sagittal reformats were performed. For radiation dose reduction, the following was used: automated exposure control, adjustment of mA and/or kV according to patient size. COMPARISON: [facility], CT, CT ABD PELVIS W CON, 05/28/2016, 0:23. FINDINGS: Image quality: Excellent. ABDOMEN: Lung bases: Lung bases are clear. Heart size is normal. Solid organs: Liver and spleen are normal in size. Gallbladder is within normal limits. Pancreas is normal in size. No adrenal nodules. Moderate perinephric fat stranding bilaterally. Moderate to severe bilateral hydronephrosis. Moderate bilateral ureteral dilatation. Peritoneum and bowel: Bowel loops demonstrate normal wall thickness and caliber. No free fluid or air. Nodes and vessels: New mildly prominent retroperitoneal lymph nodes are present , largest of which is in the aortocaval location measuring 13 mm short axis. Smaller scattered bilateral retroperitoneal and iliac chain lymph nodes are present, which are increased.. Aorta and inferior vena cava are normal in size. Miscellaneous: No ventral hernias. PELVIS: Genitourinary: Moderate urinary bladder distention. Miscellaneous: No inguinal hernias or adenopathy. Bones: New 20 mm diameter sclerotic focus within the left posterior L5 vertebral body. No vertebral body compression fractures. IMPRESSION: 1. Findings most consistent with bladder outlet obstruction, with dilated urinary bladder, moderate to severe bilateral hydronephrosis, and ureteral dilatation. 2. New retroperitoneal and iliac chain lymph node enlargement, consistent with metastatic disease given history of prostate carcinoma. 3. New left L5 sclerotic metastasis. Dictated by: Muneer White, M.D Brief History Per admission H&P: 66-year-old male with history of 6 days of progressive low back pain/weakness concurrent with increasing urinary obstruction symptoms. He is known to have prostate cancer and on CT scan imaging is found to have a L5 metastatic lesion that is apparently new. He has been resistant to treatment of prostate cancer for several years, apparently going back to 2010, and has seen urology both locally with Dr. Lopez and with the [place] urology clinic in [place]. On his last admission in May he had similar bilateral hydronephrosis and obstruction symptoms. He was apparently self catheterizing until the end of September when he experienced gross hematuria after he says he accidentally used a larger than normal catheter. He has not been catheterizing himself since and now appears to have 875 mL postvoid. This whole process has left him sleepless, weakend, in increasing pain. His last contact with his [facility] doctor last week was apparently to ask for a sleeping pill. His creatinine has risen from a baseline of 1.2 up to 3.2 with a BUN of 85. His white blood count again is high at 18,000. On his last admission and this was felt to be caused by the demargination but again pyelonephritis/UTI is once again suspected. There has been no fevers or abdominal pain. Since admission, pain control improved but still not optimal. Urinary symptoms resolved with Palencia catheter placement. Renal function back to baseline. Patient is deeply attached to alternative medical approach to his cancer diagnosis, utilizing the Budwig dietary program (which, among other things, involves the use of eating cottage cheese and flaxseed oil as a curative). He refuses urology or oncology consultations were input, is very concerned about all of his medications and the impact they may have on/potential issues with interference with his diet. Cancer was originally diagnosed in 2010 and he [facility]. He went on a broccoli sprout curative diet and says that his PSA initially decreased, but then he had to do a lot of traveling, fell off the diet and that is why his cancer recurred. Palliative medicine was consulted to assist with symptom management, discussion of advanced directive and other related issues, as well as goals of care. Prior to visiting, I reviewed his updated records in the EMR in detail and spoke with his bedside nurse. When I arrived, he was resting comfortably in bed. He is oriented and quite appropriate. He continues to have low back pain but says it is somewhat better. He is willing to go home with Palencia catheter in place. He says unequivocally "I want to live" and expects that adherence to the Budwig diet will control or cure his cancer. He is quite close to any consideration of other possible outcomes. At this time his biggest concern is that he says "I need to get my strength back ". He is interested in receiving home health support, possibly home health physical therapy, and wonders if we could help him obtain DME such as bathroom rails, etc. He initially also requested that he be allowed to come to the hospital every month or two to have blood tests that he wants done drawn without having to see a physician and we talked through this- I basically advised him that that was impossible and that he would have to follow with somebody as outpatient order such testing for him. He is unhappy with his [facility] care because they do not take care of him in an understanding way that is consistent with his alternative approach, but was open to considering seeing a physician at the resident clinic. He says finances are a significant issue and he does not have money to see an expensive doctor. Hospital Course 1 - Bony metastasis of prostate cancer: Pain was thought to be due to below the level of the L5 Metastasis so the local tumor growth and the probable nerve plexus involvement. Patient was given dexamethasone IV, pain control based on palliative care recommendations, physical therapy worked with patient regularly. On the day of discharge patient was seen ambulating in the hallways independently. 2 - Bladder Outlet Obstruction/Hydronephrosis: The patient refused urology consultation because he will be discharged with the catheter. We did recommend to him that he should still follow up with urology via his PCP. -He refuses urology consultation, so will need to be discharged with a catheter. He is encouraged to discuss this with the PCP in order to get a referral to urology. 3 - Out of Control Pain/Insomnia: He was given dexamethasone ibuprofen, IV fentanyl by mouth hydrocodone. He refused to consider urology prostate cancer treatments for pain 4- Probable Depression -Recommended treatment in further discussions with the patient -He is suspicious and probably paranoid about many medicines. 5 - Acute Renal Failure -improved as anticipated with relief of outlet obstruction using catheter. Palencia will be left in 6 - Leukocytosis: Much improved at the time of discharge. Exam Vital Signs (Last) Date Time Temp Pulse Resp B/P Pulse Ox O2 Delivery O2 Flow Rate FiO2 11/05/16 06:06 36.2 91 20 158/72 99 Room Air Exam Gen.: No acute distress HEENT: Normocephalic, atraumatic Heart: Regular rate and rhythm no S3-S4 Lungs: Clear to auscultation bilaterally no crackles or wheezes Abdomen flat and nontender, normal bowel sounds Extremities: Musculoskeletal strength equal and symmetric Neuro: No focal deficits Psych: Affect is neutral, mood is relaxed Test 11/02/16 12:50 11/02/16 14:14 11/03/16 04:57 11/05/16 05:20 Lactic Acid Level 0.7mmol/L (0.4-2.0) Magnesium Level 2.5mg/dL (1.6-2.6) Total Bilirubin 0.3mg/dL (0.0-1.2) Aspartate Amino Transf (AST/SGOT) 14U/L (0-50) Alanine Aminotransferase (ALT/SGPT) 12U/L (0-44) Alkaline Phosphatase 78U/L (25-160) Total Protein 7.2g/dL (6.4-8.4) Albumin 3.8g/dL (3.4-5.0) Lipase 38U/L (13-60) Urine Color Yellow (YELLOW) Urine Appearance Hazy (CLEAR,HAZY) Urine pH 5.5 (5.0-8.0) Urine Specific [place] 1.010 (1.003-1.035) Urine Protein Negativemg/dL (NEG,TRACE) Urine Glucose (UA) Negativemg/dL (NEGATIVE) Urine Ketones Negativemg/dL (NEGATIVE) Urine Occult Blood Negative (NEGATIVE) Urine Nitrite Negative (NEGATIVE) Urine Bilirubin Negative (NEGATIVE) Urine Urobilinogen Normalmg/dL (NORMAL) Urine Leukocyte Esterase Negative (NEGATIVE) Urine RBC 0-2/hpf (0-2) Urine WBC 0-5/hpf (0-5) Urine Epithelial Cells Occasional/hpf (NONE-MOD) Urine Crystals None seen (NONE SEEN) Urine Bacteria Few/hpf (NONE-FEW) Urine Hyaline Casts None/lpf (NONE) Urine Granular Casts None seen (NONE SEEN) Urine Waxy Casts None seen (NONE SEEN) Urine Red Blood Cell Casts None seen (NONE SEEN) Urine White Blood Cell Casts None seen (NONE SEEN) Urine Mucus None seen (None Seen) Urine Trichomonas None seen (NONE SEEN) Urine Yeast None (NONE SEEN) Urinalysis Comment None Urine Culture Reflexed Not indicated Neutrophils (%) (Auto) 94.2% (40-74) Lymphocytes (%) (Auto) 2.9% (14-46) Monocytes (%) (Auto) 2.7% (4-12) Eosinophils (%) (Auto) 0% (0-5) Basophils (%) (Auto) 0.1% (0-3) White Blood Count 13.0th/mm3 (3.8-10.1) Red Blood Count 3.20mil/mm3 (4.40-5.80) Hemoglobin 9.6g/dL (13.8-17.2) Hematocrit 29.6% (41.0-50.0) Mean Corpuscular Volume 92.5fL (81-100) Mean Corpuscular Hemoglobin 30.0pg (27.0-35.0) Mean Corpuscular Hemoglobin Concent 32.4% (32.0-37.0) Red Cell Distribution Width 12.9% (12.3-15.4) Platelet Count 359bil/L (150-400) Sodium Level 138mEq/L (134-144) Potassium Level 4.6mEq/L (3.5-5.2) Chloride Level 104mEq/L (97-108) Carbon Dioxide Level 20mmol/L (18-29) Blood Urea Nitrogen 15mg/dL (8-27) Creatinine 0.76mg/dL (0.76-1.27) Estimat Glomerular Filtration Rate 108mL/min (>59) Glucose Level 96mg/dL (60-99) Calcium Level 8.2mg/dL (8.5-10.1) Discharge Medications Discharge Medications Amlodipine (Amlodipine) 5 Mg Tablet 2.5 MG PO DAILY Prescribed by: YARELIS STORM DO Dexamethasone (Dexamethasone) 1 Mg Tab 1 MG PO BID Prescribed by: YARELIS STORM DO Tamsulosin (Flomax) 0.4 Mg Capsule 0.4 MG PO BID Prescribed by: TERRANCE WALSH MD As needed Polyethylene Glycol 3350 (Miralax) 17 Gm Powd.pack 17 GM PO DAILY PRN PRN For Constipation Prescribed by: YARELIS STORM DO Zolpidem (Ambien) 5 Mg Tablet 5 MG PO HS PRN PRN Insomnia Prescribed by: YARELIS STORM DO oxyCODONE (oxyCODONE) 5 Mg Tablet 5 MG PO Q4H PRN PRN For Moderate Pain Prescribed by: YARELIS STORM DO Followup Plan Follow-up plan Patient is asked to f/u with PCP Dr. Coyle at [facility] Follow-up with PCP in: 1 week Yarelis Storm DO Nov 05, 2016 14:01
--- NOTE | 2016-11-05 16:14 | NUR ---
Palliative Care ADMISSIONS ADVISOR Visit173:00PM D: This magazine writer and Palliative Care provider Dr. Lance met with pt. in his room to discuss how he can engage oncology services to learn about treatment options for his metastatic prostate CA. Pt. was tearful at times during the visit and shared that he feels his complementary/alternative medicine treatment had been unexpectedly interrupted and he believes his cancer has progressed in part because he wasn't able to maintain these alternative therapies. Dr. Lance explained that only an oncologist can give him a full assessment of what treatments are most appropriate and reasonable at this time, which pt. seemed to understand. After Dr. Lance left, this magazine writer and pt. reviewed what steps he needs to take in the coming days to access follow-up primary care (for medication management) and oncology services. Pt. and this magazine writer called his PCP, Dr. Pearson, at the local [place] clinic and left a message to schedule an appt. Pt. and this magazine writer also called his sister, Vivi, who lives out of the area but wants to be of support to pt. Vivi was told that pt. needs to establish care with an oncologist in the coming weeks to learn about treatment options. This magazine writer agreed to call pt. tomorrow to check in about whether he was able to get an appt. with Dr. Pearson. A: Pt. appears anxious about how his new cancer mets (to L5 vertebrae) may impact his life expectancy and physical functionality. He expresses concern about how long it may take to get into see an oncologist, either locally or in [place]. P: This magazine writer to call pt. on 11/06/16 to check in about whether he was able to schedule an appt. with his PCP, and to provide psycho-social support to pt. as he transitions out of [facility] to home. Jazmin Bateman, ADMISSIONS ADVISOR, [facility] Palliative Care Services
--- NOTE | 2016-11-05 16:56 | PCM.PALLBR ---
Palliative Care Recommendation 66-year-old gentleman with known prostate cancer, not compliant with standard care, who presented with increasing back pain and finding of new L5 metastatic lesion as well as new lymphadenopathy. Continues to be committed to pursuing only alternative therapies (the Budwig diet) per discussion with Dr. Holland, Palliative Care Team on 11/04. Today, 11/[address] Lance and Jazmin Jorgensen to crisis counselor him on options for more conventional cancer therapies. Palliative medicine consulted to assist with symptom management, advanced directive planning, as well as discussion of goals of care. Summary of palliative recommendations: -Symptom management (Pain/other)- Continue oxycodone 5-10 mg Q 4 hr prn. He has been very reluctant to try IV pain medicines. Discussed ongoing use of dexamethasone and offered to switch to 4 mg PO QAM in preparation for discharge, but he is wary of this medicine and wants to read more about it before making any changes or agreeing to continue it. On 11/05, he is still not sure what he wants to do about steroid. He will need to be discharged with Palencia catheter in place to prevent recurrent bladder outlet obstruction and resultant acute renal failure. -DPOA/Advanced Directives/POLST- has never completed such documentation and was not willing to do so today. Did mention that years ago his father made him his POA which caused all sorts of strife in the family, and so he said his sisters involvement is problematic. -Family/emotional support- he tells me mixed things about how his sisters will react or support him, but did note that they have offered to take him in at their homes in [place] and he is considering moving there. Extensive counseling toda (60 min) with pt on need to see his PCP at [place] [facility] Dr. Coyle in order to set up an oncology referral and to get outpatient pain medications and support (if needed) through Outpatient palliative care clinic here. Please see further documentation from KIMBERLEY Jimenez. Expect patient to discharge today. Additional Medical Diagnoses with primary management by Hospitalist team include : 1 - Bony metastasis of prostate cancer 2 - Bladder Outlet Obstruction/Hydronephrosis 3 - Out of Control Pain/Insomnia 4- Probable Depression 5 - Acute Renal Failure 6 - Leukocytosis Problems: End of Life Preferences At this time he remains full code but is uninterested in standard medical evaluation/intervention for his progressive cancer Goals of Care He says that he wants to live and he says that he wants to use his Budwig diet to help cure him Disposition Probably home with home health support Resuscitation Status Resuscitation Status: CPR: Attempt Resuscitation POLST Updates/Changes Previous POLST?: No Total time 65 minutes; >50% face to face with patient and/or family, providing counselling regarding plans and recommendations, and in care coordination with his/her medical teams. Palliative Brief Note Date of Service Nov 05, 2016 . 66-year-old male with history of 6 days of progressive low back pain/weakness concurrent with increasing urinary obstruction symptoms. He is known to have prostate cancer and on CT scan imaging is found to have a L5 metastatic lesion that is apparently new. He has been resistant to treatment of prostate cancer for several years, apparently going back to 2010, and has seen urology both locally with Dr. Lopez and with the [place] [facility] clinic in [place]. On his last admission in May he had similar bilateral hydronephrosis and obstruction symptoms. He was apparently self catheterizing until the end of September when he experienced gross hematuria after he says he accidentally used a larger than normal catheter. He has not been catheterizing himself since and now appears to have 875 mL postvoid. This whole process has left him sleepless, weakend, in increasing pain. His last contact with his [facility] doctor last week was apparently to ask for a sleeping pill. His creatinine has risen from a baseline of 1.2 up to 3.2 with a BUN of 85. His white blood count again is high at 18,000. On his last admission and this was felt to be caused by the demargination but again pyelonephritis/UTI is once again suspected. There has been no fevers or abdominal pain. Since admission, pain control improved but still not optimal. Urinary symptoms resolved with Palencia catheter placement. Renal function back to baseline. Patient is deeply attached to alternative medical approach to his cancer diagnosis, utilizing the Budwig dietary program (which, among other things, involves the use of eating cottage cheese and flaxseed oil as a curative). He refuses urology or oncology consultations were input, is very concerned about all of his medications and the impact they may have on/potential issues with interference with his diet. Cancer was originally diagnosed in 2010 and he [facility]. He went on a broccoli sprout curative diet and says that his PSA initially decreased, but then he had to do a lot of traveling, fell off the diet and that is why his cancer recurred. Palliative medicine was consulted to assist with symptom management, discussion of advanced directive and other related issues, as well as goals of care. Prior to visiting, I reviewed his updated records in the EMR in detail and spoke with his bedside nurse. When I arrived, he was resting comfortably in bed. He is oriented and quite appropriate. He continues to have low back pain but says it is somewhat better. He is willing to go home with Palencia catheter in place. He says unequivocally "I want to live" and expects that adherence to the Budwig diet will control or cure his cancer. He is quite close to any consideration of other possible outcomes. At this time his biggest concern is that he says "I need to get my strength back ". He is interested in receiving home health support, possibly home health physical therapy, and wonders if we could help him obtain DME such as bathroom rails, etc. He initially also requested that he be allowed to come to the hospital every month or two to have blood tests that he wants done drawn without having to see a physician and we talked through this- I basically advised him that that was impossible and that he would have to follow with somebody as outpatient order such testing for him. He is unhappy with his [facility] care because they do not take care of him in an understanding way that is consistent with his alternative approach, but was open to considering seeing a physician at the resident clinic. He says finances are a significant issue and he does not have money to see an expensive doctor. Naila Lance MD Nov 05, 2016 16:56
--- NOTE | 2016-11-05 17:51 | NUR ---
Discharge Pt discharged at 1530 and is extremely upset that we will not give him narcotics and let him drive or walk home. Pt refuses to take a cab and says "I'll take one if you pay for it." Pt has narcotic rx's that need to be filled and would need to drive to get those. Doubled checked with charged RN and OSC proposal manager writer and they are all in agreement. Mail Sorting Supervisor talked with pt as well that it would not be safe. Pt refused to get medication filled at [facility] pharmacy as well. Pt VSS, MARJORIE, A&O x 3. Leg back in place and pt d/c'd with [facility]. Teaching done and new larger bag given for night. Pt has all belongings, care notes, discharge instructions and rx's. IV removed intact.
--- NOTE | 2016-11-06 09:21 | NUR ---
Palliative Care DIRECTOR OF CORPORATE COMMUNICATIONS Follow-Up Calls11/07/1707:45am 1. This internal communications writer called [facility] to ensure pt.'s appt. with Dr. Pearson is being scheduled. Scheduling staff indicated that pt.'s PCP will be able to see him soon. 2. This internal communications writer then called pt. to inform him that he should be getting a call from [facility] later today to see Dr. Pearson and get referral to oncology services. Jzamin Bateman MSW, [facility] Palliative Care Services
--- NOTE | 2016-11-07 14:41 | NUR ---
Palliative Care TROUBLE LOCATOR TEST DESK Telephone Call11/07/1713:30PM This movie writer called pt. to see if he had seen his PCP and been referred for oncology consult to learn about treatment options for his metastatic prostate CA. Pt. shared he saw Dr. Pearson ([place] [facility]) and will be speaking with [facility] in [place] on 11/11/16. Pt. expressed he would like to speak with Palliative Care after he talks with an oncologist 'to update you on what is happening.' Pt. told this movie writer that there is a woman with CD issues who is currently staying at his apartment and he does not want her to be there. Pt. noted that this woman is trying to get into an inpatient drug treatment program, but until then she does not have anywhere else to stay. This movie writer encouraged pt. to tell the woman to leave, and to contact law enforcement if she does not leave. Pt. was told that given all the health challenges he is facing having a drug addict staying with him is risky. Pt. agrees and shared, "I think I'll tell her to go later today." This movie writer agreed to call pt. next week to review what he learned from [place] [facility] services. Jazmin Bateman, TROUBLE LOCATOR TEST DESK, [facility] Palliative Care Services
--- NOTE | 2016-11-12 11:57 | NUR ---
Palliative care note D/A: Phone call from PERRI Jackson from [facility]. Pt seeing Dr. Rogers today. Clinic RN had identified pt as possible candidate for PC outpt and pt had identified that he had not seen PC. Review of chart reveals that pt was seen by two PC providers and also worked with PC TAXI CAB DRIVER. Discuss with Randa that recommendation from PC was for pt to see oncology and learn of possible treatment options as he strongly identified desire for treatment. Pt was possibly to have seen [place] oncology on Friday11/11/16. Pt to be seen in clinic today by Dr. Rogers. Identified that PC acts as consultative service and works in conjuncture with oncology or PCP. Noted would be able to provide assist with symptom management or goals of care but that pt first needs to pursue PC consult. All PC records faxed to Randa at [facility] for PCP appt ). Have also scanned and sent her copies of brochure and one page PC info sheet. Provided further info regarding PC services and also recommended website [email or web address] P: No further need for PC services at this time. Joann DAMON, CCM
--- NOTE | 2016-11-15 11:15 | NUR ---
Palliative Care CUSTOMER ENGAGEMENT SPECIALIST Telephone Call1:00AM This editorial writer called and spoke with pt. about whether he has seen an oncologist as recommended by PC provider and his PCP, Dr. Pearson. Pt. noted that Dr. Pearson (at the [facility]) spoke with a [place] oncologist and for the moment they are prescribing a medication to address the symptoms of pt.'s prostate CA. Pt. shared that he will go to see a [place] [facility] doctor in [place] at the end of October, along with a urologist. He told this editorial writer that for now he feels his care needs are being well managed by Dr. Pearson. Jazmin Bateman, CUSTOMER ENGAGEMENT SPECIALIST, [facility]
--- NOTE | 2016-11-29 12:31 | NUR ---
Palliative care note D/A: Phone call to pt to check on ability to meet with oncologist. He notes that he is currently in a meeting with [facility] care at the [facility]. P: Pt has been able to connect with services at [facility]. Joann DAMON, MR TEACHER
--- NOTE | 2017-01-30 14:40 | NUR ---
Palliative care note D/A: Phone call received from pt sister. She expresses concern for her brother, indicating that he does not seem to be doing well, per their phone calls. She has [facility] number from pt last admit and thought that [facility] was pt primary care provider. Explain medical system to sister and that best bet will [facility] by [facility] Coyle. Gave her phone number to [facility] and advise that it may be best to start with connect with [facility]. Phone call to Christa RAYO at [facility]. Have explained situation to her and that sister may be calling to discuss pt well being. P: Palliative care to follow. Joann DAMON, CCM
== END 2016-11-05 17:30 | disposition home health service (06) | DRG 543 ==
LOC: SED 11:37 → OSC 16:05
PROVIDERS: ADMIT Family Medicine; ATTEND Family Medicine
DX: C79.51 Secondary malignant neoplasm of bone (principal); N17.9 Acute kidney failure, unspecified; N13.30 Unspecified hydronephrosis; G89.3 Neoplasm related pain (acute) (chronic); Z87.891 Personal history of nicotine dependence; C61 Malignant neoplasm of prostate; N32.0 Bladder-neck obstruction; Z51.5 Encounter for palliative care; G47.00 Insomnia, unspecified; M54.5 Low back pain